=== PATIENT | male | born 1945 | race Caucasian/White ===

== ENCOUNTER 2020-07-09 17:03 | Inpatient (IN) ==
[2020-07-09] MEDS ORDERED: Naloxone 0.4 MG/ML INJ IVP PRN (19:52)
[2020-07-09] MEDS ORDERED: Ondansetron 4 MG/2 ML VIAL IVP PRN (19:52)
[2020-07-10] MEDS ORDERED: 0.9 % Sodium Chloride 1,000 ML IVC ONE (00:17)
[2020-07-10] MEDS: Acetaminophen 325 MG TABLET PO PRN (00:36)
[2020-07-10 02:32] LABS: Basophils % 0.1 %; Eosinophils % 0.1 %; Hematocrit 30.1 % (37.5-50.1); Hemoglobin 9.8 g/dL (12.9-16.9); Immature Granulocytes % 0.6 % (0-4); Lymphocytes # 0.3 K/mcL (0.6-4.6); Lymphocytes % 2.7 %; Mean Corpuscular HGB Conc 32.6 g/dL (31.6-35.5); Mean Corpuscular Hemoglobin 30.2 pg (28.0-33.3); Mean Corpuscular Volume 92.6 fL (83.0-100.0); Monocytes # 0.4 K/mcL (0.0-1.3); Monocytes % 3.2 %; Neutrophils # 11.8 K/mcL (1.6-8.9); Platelet Count 201 K/mcL (140-400); Red Blood Count 3.25 M/mcL (4.19-5.50); Red Cell Distribution Width 15.1 % (11.5-14.5); Segmented Neutrophils % 93.3 %; White Blood Count 12.7 K/mcL (4.3-11.1)
[2020-07-10 02:46] LABS: INR 9.2; Prothrombin Time 99.6 Seconds (9.4-12.1)
[2020-07-10 02:50] LABS: Alanine Aminotransferase 17 Units/L (7-52); Albumin 2.7 g/dL (3.5-5.7); Alkaline Phosphatase 70 Units/L (34-104); Aspartate Amino Transferase 26 Units/L (13-39); BUN/Creatinine Ratio 23 (6-26); Bilirubin,Total 0.6 mg/dL (0.3-1.0); Blood Urea Nitrogen 14 mg/dL (8-23); Carbon Dioxide 23 mEq/L (23-29); Chloride 101 mEq/L (98-107); Globulin 2.6 g/dL (2.4-3.5); Glucose 212 mg/dL (70-105); Magnesium 2.1 mg/dL (1.6-2.6); Osmolality,Calculated 283 (280-300); Phosphorous 3.8 mg/dL (2.7-4.5); Sodium 133 mEq/L (136-145); Total Protein 5.3 g/dL (6.4-8.9); Troponin I < 0.03 ng/mL (< 0.04); eGFR For African Americans > 60 (> 60); eGFR For Non-African Americans > 60 (> 60)
[2020-07-10] MEDS ORDERED: Albuterol 2.5 MG/3 ML NEBULIZER IH PRN (04:54)
[2020-07-10] MEDS: Azithromycin 500 MG in 0.9 % Sodium Chloride 250 ML IVPB SCH (05:11)
[2020-07-10] MEDS: predniSONE 20 MG TABLET PO SCH (08:17)
[2020-07-10] MEDS: Calcium Gluconate 1gm/50mL 1 GM/50 ML BAG IVPB SCH ×2 (08:18→08:43)
[2020-07-10] MEDS: *HR* OxyCODONE/APAP 7.5/325 TABLET PO PRN ×2 (08:26→16:42)
[2020-07-10] MEDS ORDERED: cefTRIAXone 1,000 MG in Water for inj. (sterile) 10 ML IVP SCH (09:00)
[2020-07-10 11:33] LABS: INR 1.6; Prothrombin Time 18.7 Seconds (9.4-12.1)
[2020-07-10] MEDS: Piperacillin/Tazobactam 3.375 GM in 0.9 % Sodium Chloride Mini Bag 100 ML IVPB SCH (16:42)
[2020-07-10] MEDS: Nystatin SUSP 5 ML UD.LIQ PO SCH (20:10)
[2020-07-10] MEDS ORDERED: *HR* LORazepam 2 MG/ML VIAL IVP PRN ×3 (21:25)
[2020-07-10] MEDS ORDERED: Ipratropium/Albuterol Neb 3 ML IH PRN (21:30)
[2020-07-10] MEDS: Ipratropium/Albuterol Neb 3 ML IH SCH (22:37)
[2020-07-10] MEDS: Budesonide/Formoterol 160/4.5 1 PUFF INH IH SCH (22:37)
[2020-07-11] MEDS: Piperacillin/Tazobactam 3.375 GM in 0.9 % Sodium Chloride Mini Bag 100 ML IVPB SCH ×3 (00:42→16:50)
[2020-07-11] MEDS: *HR* OxyCODONE/APAP 7.5/325 TABLET PO PRN ×2 (00:44→09:38)
[2020-07-11] MEDS: Ipratropium/Albuterol Neb 3 ML IH SCH ×4 (03:49→22:29)
[2020-07-11] MEDS: Azithromycin 500 MG in 0.9 % Sodium Chloride 250 ML IVPB SCH (04:57)
[2020-07-11 07:00] LABS: Basophils % 0.1 %; Hemoglobin 9.3 g/dL (12.9-16.9); Immature Granulocytes % 0.8 % (0-4); Lymphocytes # 0.9 K/mcL (0.6-4.6); Lymphocytes % 5.6 %; Mean Corpuscular HGB Conc 32.1 g/dL (31.6-35.5); Mean Corpuscular Hemoglobin 29.9 pg (28.0-33.3); Mean Corpuscular Volume 93.2 fL (83.0-100.0); Mean Platelet Volume 9.8 fL (9.4-12.4); Monocytes # 1.1 K/mcL (0.0-1.3); Monocytes % 7.3 %; Neutrophils # 13.4 K/mcL (1.6-8.9); Platelet Count 217 K/mcL (140-400); Red Blood Count 3.11 M/mcL (4.19-5.50); Segmented Neutrophils % 86.2 %; White Blood Count 15.6 K/mcL (4.3-11.1)
[2020-07-11 07:07] LABS: INR 1.1; Prothrombin Time 12.5 Seconds (9.4-12.1)
[2020-07-11 07:12] LABS: Alanine Aminotransferase 30 Units/L (7-52); Albumin 2.6 g/dL (3.5-5.7); Alkaline Phosphatase 61 Units/L (34-104); Aspartate Amino Transferase 38 Units/L (13-39); BUN/Creatinine Ratio 25 (6-26); Bilirubin,Total 0.4 mg/dL (0.3-1.0); Blood Urea Nitrogen 15 mg/dL (8-23); Calcium 8.3 mg/dL (8.6-10.3); Carbon Dioxide 25 mEq/L (23-29); Chloride 104 mEq/L (98-107); Globulin 2.5 g/dL (2.4-3.5); Glucose 139 mg/dL (70-105); Osmolality,Calculated 283 (280-300); Phosphorous 3.4 mg/dL (2.7-4.5); Potassium 3.7 mEq/L (3.5-5.1); Sodium 135 mEq/L (136-145); Total Protein 5.1 g/dL (6.4-8.9); eGFR For African Americans > 60 (> 60); eGFR For Non-African Americans > 60 (> 60)
[2020-07-11] MEDS: Furosemide 40 MG TABLET PO SCH (07:49)
[2020-07-11] MEDS: Thiamine (B-1) 100 MG TABLET PO SCH (07:49)
[2020-07-11] MEDS: Nystatin SUSP 5 ML UD.LIQ PO SCH ×3 (07:49→22:12)
[2020-07-11] MEDS: Spironolactone 25 MG TABLET PO SCH (07:49)
[2020-07-11] MEDS: predniSONE 20 MG TABLET PO SCH (07:49)
[2020-07-11] MEDS: Vitamin B Complex/Vit C/Vit E 1 EACH TABLET PO SCH (07:49)
[2020-07-11] MEDS: Loratadine 10 MG TABLET PO SCH (07:49)
[2020-07-11] MEDS: Folic Acid 1 MG TABLET PO SCH (07:50)
[2020-07-11] MEDS: Metoprolol XL (24 HR) Succ 50 MG TAB.ER.24H PO SCH (07:50)
[2020-07-11] MEDS: lisinopriL 10 MG TABLET PO SCH (07:50)
[2020-07-11] MEDS: Budesonide/Formoterol 160/4.5 1 PUFF INH IH SCH ×2 (10:27→22:31)
[2020-07-11] MEDS: Acetaminophen 325 MG TABLET PO PRN (15:12)
[2020-07-12] MEDS: Ipratropium/Albuterol Neb 3 ML IH SCH ×6 (04:08→22:50)
[2020-07-12] MEDS: Azithromycin 500 MG in 0.9 % Sodium Chloride 250 ML IVPB SCH (04:42)
[2020-07-12 07:36] LABS: INR 1.5
[2020-07-12 07:57] LABS: Basophils % 0.1 %; Eosinophils % 0.1 %; Hematocrit 28.8 % (37.5-50.1); Hemoglobin 9.6 g/dL (12.9-16.9); Immature Granulocytes % 0.4 % (0-4); Lymphocytes # 1.2 K/mcL (0.6-4.6); Mean Corpuscular HGB Conc 33.3 g/dL (31.6-35.5); Mean Corpuscular Volume 92.9 fL (83.0-100.0); Mean Platelet Volume 9.9 fL (9.4-12.4); Monocytes # 1.4 K/mcL (0.0-1.3); Monocytes % 9.9 %; Platelet Count 223 K/mcL (140-400); Red Cell Distribution Width 15.3 % (11.5-14.5); Segmented Neutrophils % 80.5 %; White Blood Count 13.6 K/mcL (4.3-11.1)
[2020-07-12 08:15] LABS: Alanine Aminotransferase 28 Units/L (7-52); Albumin 2.7 g/dL (3.5-5.7); Albumin/Globulin Ratio 1.1 (1.1-2.2); Alkaline Phosphatase 59 Units/L (34-104); Aspartate Amino Transferase 24 Units/L (13-39); BUN/Creatinine Ratio 22 (6-26); Bilirubin,Total 0.5 mg/dL (0.3-1.0); Blood Urea Nitrogen 13 mg/dL (8-23); Calcium 8.2 mg/dL (8.6-10.3); Carbon Dioxide 27 mEq/L (23-29); Chloride 102 mEq/L (98-107); Globulin 2.5 g/dL (2.4-3.5); Glucose 111 mg/dL (70-105); Magnesium 1.9 mg/dL (1.6-2.6); Osmolality,Calculated 281 (280-300); Sodium 135 mEq/L (136-145); Total Protein 5.2 g/dL (6.4-8.9); eGFR For African Americans > 60 (> 60); eGFR For Non-African Americans > 60 (> 60)
[2020-07-12] MEDS: Piperacillin/Tazobactam 3.375 GM in 0.9 % Sodium Chloride Mini Bag 100 ML IVPB SCH ×3 (09:22→16:52)
[2020-07-12] MEDS: Metoprolol XL (24 HR) Succ 50 MG TAB.ER.24H PO SCH (09:26)
[2020-07-12] MEDS: Loratadine 10 MG TABLET PO SCH (09:26)
[2020-07-12] MEDS: Spironolactone 25 MG TABLET PO SCH (09:26)
[2020-07-12] MEDS: lisinopriL 10 MG TABLET PO SCH (09:26)
[2020-07-12] MEDS: Furosemide 40 MG TABLET PO SCH (09:26)
[2020-07-12] MEDS: Folic Acid 1 MG TABLET PO SCH (09:26)
[2020-07-12] MEDS: predniSONE 20 MG TABLET PO SCH (09:26)
[2020-07-12] MEDS: Vitamin B Complex/Vit C/Vit E 1 EACH TABLET PO SCH (09:26)
[2020-07-12] MEDS: Thiamine (B-1) 100 MG TABLET PO SCH (09:26)
[2020-07-12] MEDS: Nystatin SUSP 5 ML UD.LIQ PO SCH ×3 (09:29→21:43)
[2020-07-12] MEDS: *HR* OxyCODONE/APAP 7.5/325 TABLET PO PRN ×3 (09:39→18:21)
[2020-07-12] MEDS: Budesonide/Formoterol 160/4.5 1 PUFF INH IH SCH ×2 (10:01→19:55)
[2020-07-12] MEDS: Acetaminophen 325 MG TABLET PO PRN (15:13)
[2020-07-12] MEDS: MethylPREDNISolone 40 MG/ML VIAL IVP SCH (16:53)
[2020-07-12] MEDS ORDERED: *HR* Warfarin 3 MG TABLET PO SCH (21:00)
[2020-07-12] MEDS: Melatonin 3 MG TABLET PO PRN (21:45)
[2020-07-13] MEDS: Piperacillin/Tazobactam 3.375 GM in 0.9 % Sodium Chloride Mini Bag 100 ML IVPB SCH ×3 (00:19→16:07)
[2020-07-13] MEDS: Acetaminophen 325 MG TABLET PO PRN ×3 (00:19→21:02)
[2020-07-13] MEDS: MethylPREDNISolone 40 MG/ML VIAL IVP SCH ×4 (00:19→23:19)
[2020-07-13] MEDS: Ipratropium/Albuterol Neb 3 ML IH SCH ×6 (04:09→22:54)
[2020-07-13] MEDS: *HR* OxyCODONE/APAP 7.5/325 TABLET PO PRN ×3 (05:19→23:19)
[2020-07-13] MEDS: Azithromycin 500 MG in 0.9 % Sodium Chloride 250 ML IVPB SCH (05:19)
[2020-07-13] MEDS: Budesonide/Formoterol 160/4.5 1 PUFF INH IH SCH ×2 (07:25→19:37)
[2020-07-13] MEDS: Metoprolol XL (24 HR) Succ 50 MG TAB.ER.24H PO SCH (08:06)
[2020-07-13] MEDS: Thiamine (B-1) 100 MG TABLET PO SCH (08:06)
[2020-07-13] MEDS: Furosemide 40 MG TABLET PO SCH (08:06)
[2020-07-13] MEDS: Folic Acid 1 MG TABLET PO SCH (08:07)
[2020-07-13] MEDS: Loratadine 10 MG TABLET PO SCH (08:07)
[2020-07-13] MEDS: Spironolactone 25 MG TABLET PO SCH (08:07)
[2020-07-13] MEDS: lisinopriL 10 MG TABLET PO SCH (08:09)
[2020-07-13 08:16] LABS: INR 1.8; Prothrombin Time 20.5 Seconds (9.4-12.1)
[2020-07-13] MEDS: Vitamin B Complex/Vit C/Vit E 1 EACH TABLET PO SCH (08:17)
[2020-07-13] MEDS: Nystatin SUSP 5 ML UD.LIQ PO SCH ×3 (08:19→21:03)
[2020-07-13 08:28] LABS: Basophils % 0.1 %; Immature Granulocytes % 0.8 % (0-4); Lymphocytes # 0.4 K/mcL (0.6-4.6); Lymphocytes % 4.9 %; Mean Corpuscular HGB Conc 33.3 g/dL (31.6-35.5); Mean Corpuscular Hemoglobin 30.4 pg (28.0-33.3); Mean Corpuscular Volume 91.2 fL (83.0-100.0); Mean Platelet Volume 9.7 fL (9.4-12.4); Monocytes # 0.3 K/mcL (0.0-1.3); Monocytes % 3.6 %; Platelet Count 217 K/mcL (140-400); Red Blood Count 2.96 M/mcL (4.19-5.50); Red Cell Distribution Width 15.1 % (11.5-14.5); Segmented Neutrophils % 90.6 %; White Blood Count 8.9 K/mcL (4.3-11.1)
[2020-07-13 09:49] LABS: Alanine Aminotransferase 24 Units/L (7-52); Albumin 2.6 g/dL (3.5-5.7); Alkaline Phosphatase 60 Units/L (34-104); Aspartate Amino Transferase 16 Units/L (13-39); BUN/Creatinine Ratio 26 (6-26); Bilirubin,Total 0.6 mg/dL (0.3-1.0); Blood Urea Nitrogen 14 mg/dL (8-23); Calcium 8.1 mg/dL (8.6-10.3); Carbon Dioxide 29 mEq/L (23-29); Chloride 100 mEq/L (98-107); Globulin 2.5 g/dL (2.4-3.5); Glucose 142 mg/dL (70-105); Osmolality,Calculated 283 (280-300); Phosphorous 4.1 mg/dL (2.7-4.5); Sodium 135 mEq/L (136-145); Total Protein 5.1 g/dL (6.4-8.9); eGFR For African Americans > 60 (> 60); eGFR For Non-African Americans > 60 (> 60)
[2020-07-13] MEDS ORDERED: *HR* Warfarin 1 MG TABLET PO ONE (18:00)
[2020-07-13] MEDS ORDERED: Warfarin perPT PO SCH (18:00)
[2020-07-13] MEDS ORDERED: *HR* Warfarin 3 MG TABLET PO SCH (21:00)
[2020-07-13] MEDS: Melatonin 3 MG TABLET PO PRN (21:03)
[2020-07-14 01:34] LABS: INR 1.9; Prothrombin Time 21.7 Seconds (9.4-12.1)
[2020-07-14] MEDS: Ipratropium/Albuterol Neb 3 ML IH SCH ×6 (03:19→23:42)
[2020-07-14] MEDS: Piperacillin/Tazobactam 3.375 GM in 0.9 % Sodium Chloride Mini Bag 100 ML IVPB SCH ×3 (04:17→21:17)
[2020-07-14] MEDS: Budesonide/Formoterol 160/4.5 1 PUFF INH IH SCH ×2 (07:22→19:31)
[2020-07-14] MEDS: Vitamin B Complex/Vit C/Vit E 1 EACH TABLET PO SCH (09:07)
[2020-07-14] MEDS: Folic Acid 1 MG TABLET PO SCH (09:07)
[2020-07-14] MEDS: Spironolactone 25 MG TABLET PO SCH (09:08)
[2020-07-14] MEDS: Azithromycin 250 MG TABLET PO SCH (09:08)
[2020-07-14] MEDS: Metoprolol XL (24 HR) Succ 50 MG TAB.ER.24H PO SCH (09:08)
[2020-07-14] MEDS: Furosemide 40 MG TABLET PO SCH (09:08)
[2020-07-14] MEDS: Thiamine (B-1) 100 MG TABLET PO SCH (09:08)
[2020-07-14] MEDS: Nystatin SUSP 5 ML UD.LIQ PO SCH ×3 (09:08→21:18)
[2020-07-14] MEDS: lisinopriL 10 MG TABLET PO SCH (09:08)
[2020-07-14] MEDS: Loratadine 10 MG TABLET PO SCH (09:08)
[2020-07-14] MEDS: *HR* OxyCODONE/APAP 7.5/325 TABLET PO PRN ×2 (09:13→16:37)
[2020-07-14] MEDS: MethylPREDNISolone 40 MG/ML VIAL IVP SCH ×2 (10:10→21:15)
[2020-07-14] MEDS ORDERED: *HR* Warfarin 1 MG TABLET PO ONE (18:00)
[2020-07-15 03:00] LABS: Basophils % 0.1 %; Eosinophils % 0.2 %; Hematocrit 30.2 % (37.5-50.1); Immature Granulocytes % 0.8 % (0-4); Lymphocytes # 1.1 K/mcL (0.6-4.6); Lymphocytes % 8.6 %; Mean Corpuscular HGB Conc 33.1 g/dL (31.6-35.5); Mean Corpuscular Hemoglobin 30.6 pg (28.0-33.3); Mean Corpuscular Volume 92.4 fL (83.0-100.0); Mean Platelet Volume 9.6 fL (9.4-12.4); Monocytes # 0.6 K/mcL (0.0-1.3); Monocytes % 4.7 %; Neutrophils # 11.2 K/mcL (1.6-8.9); Platelet Count 281 K/mcL (140-400); Red Blood Count 3.27 M/mcL (4.19-5.50); Red Cell Distribution Width 15.1 % (11.5-14.5); Segmented Neutrophils % 85.6 %; White Blood Count 13.1 K/mcL (4.3-11.1)
[2020-07-15 03:15] LABS: INR 1.7; Prothrombin Time 19.8 Seconds (9.4-12.1)
[2020-07-15 03:21] LABS: BUN/Creatinine Ratio 33 (6-26); Blood Urea Nitrogen 22 mg/dL (8-23); Calcium 8.6 mg/dL (8.6-10.3); Carbon Dioxide 30 mEq/L (23-29); Chloride 99 mEq/L (98-107); Glucose 111 mg/dL (70-105); Osmolality,Calculated 284 (280-300); Potassium 4.3 mEq/L (3.5-5.1); Sodium 135 mEq/L (136-145); eGFR For African Americans > 60 (> 60); eGFR For Non-African Americans > 60 (> 60)
[2020-07-15] MEDS: Ipratropium/Albuterol Neb 3 ML IH SCH ×4 (03:48→15:49)
[2020-07-15] MEDS: MethylPREDNISolone 40 MG/ML VIAL IVP SCH (04:18)
[2020-07-15] MEDS: Piperacillin/Tazobactam 3.375 GM in 0.9 % Sodium Chloride Mini Bag 100 ML IVPB SCH ×2 (04:19→12:11)
[2020-07-15] MEDS: Folic Acid 1 MG TABLET PO SCH (07:47)
[2020-07-15] MEDS: Furosemide 40 MG TABLET PO SCH (07:47)
[2020-07-15] MEDS: Thiamine (B-1) 100 MG TABLET PO SCH (07:47)
[2020-07-15] MEDS: Azithromycin 250 MG TABLET PO SCH (07:47)
[2020-07-15] MEDS: Loratadine 10 MG TABLET PO SCH (07:48)
[2020-07-15] MEDS: lisinopriL 10 MG TABLET PO SCH (07:48)
[2020-07-15] MEDS: Metoprolol XL (24 HR) Succ 50 MG TAB.ER.24H PO SCH (07:48)
[2020-07-15] MEDS: Vitamin B Complex/Vit C/Vit E 1 EACH TABLET PO SCH (07:48)
[2020-07-15] MEDS: Nystatin SUSP 5 ML UD.LIQ PO SCH ×2 (07:49→15:27)
[2020-07-15] MEDS: Spironolactone 25 MG TABLET PO SCH (07:49)
[2020-07-15] MEDS: Budesonide/Formoterol 160/4.5 1 PUFF INH IH SCH (07:58)
[2020-07-15] MEDS: *HR* OxyCODONE/APAP 7.5/325 TABLET PO PRN (08:38)
[2020-07-15] MEDS ORDERED: *HR* OxyCODONE ER (12 HR) 10 MG TABLET PO SCH (10:29)
[2020-07-15] MEDS ORDERED: MethylPREDNISolone 40 MG/ML VIAL IVP SCH (12:00)
[2020-07-15 14:51] VITALS: BP 96/59
[2020-07-15] MEDS ORDERED: *HR* Warfarin 2.5 MG TABLET PO ONE (18:00)
[2020-07-15] MEDS ORDERED: Sennosides 8.6 MG TABLET PO SCH (21:00)
== END 2020-07-15 18:58 | disposition home or self-care (01) | DRG 871 ==
LOC: 2NENU → SUATTDRO 18:38
PROVIDERS: ADMIT Internal Medicine; ATTEND Student in an Organized Health Care Education/Training Program